=== PATIENT | female | born 1945 | race Caucasian/White ===

== ENCOUNTER 2023-08-29 08:23 | Day surgery (SDC) | payer MEDICARE, OTHER ==
[2023-08-29] MEDS ORDERED: Depo-Medrol 40 MG/ML IM ONE (08:24)
[2023-08-29] MEDS ORDERED: LIDOCAINE HCL 2% 100 MG/5 ML IJ ONE (08:24)
[2023-08-29] MEDS ORDERED: DIPRIVAN 200 MG/20 ML IV ONE (10:49)
[2023-08-29] MEDS ORDERED: Lactated Ringers 1,000 ML IV ONE (11:12)
--- NOTE | 2023-08-29 12:06 | XRAY ---
9 seconds of fluoroscopy was used in surgery for a bilateral L4-S1 MBB.
--- NOTE | 2023-08-30 16:32 | XRAY ---
9 seconds of fluoroscopy was used in surgery for a bilateral L4-S1 MBB.
== END 2023-08-29 11:22 | disposition home or self-care (01) ==
LOC: SDC-PAIN 08:23
PROVIDERS: ATTEND Psychiatry & Neurology Pain Medicine
DX: M47.816 Spondylosis without myelopathy or radiculopathy, lumbar region (principal); E11.9 Type 2 diabetes mellitus without complications
CPT/HCPCS: 64493; 64494; 72020; 77002; 82947; J1030; J2704

== ENCOUNTER 2023-10-17 06:30 | Day surgery (SDC) | payer MEDICARE, OTHER ==
[2023-10-17] MEDS ORDERED: Depo-Medrol 40 MG/ML IM ONE (06:31)
[2023-10-17] MEDS ORDERED: BUPIVACAINE 0.5% VIAL IJ ONE (06:31)
[2023-10-17] MEDS ORDERED: DIPRIVAN 200 MG/20 ML IV ONE (08:24)
[2023-10-17] MEDS ORDERED: Lactated Ringers 1,000 ML IV ONE (09:49)
--- NOTE | 2023-10-17 12:29 | XRAY ---
Indication: Bilateral L4-S1 MBB. Intraoperative fluoroscopy provided for 11 seconds. Single digital spot image submitted for interpretation demonstrates posterior needle tips projecting over the expected left and right L4-S1 nerve roots. Correlate with interoperative findings/report.
--- NOTE | 2023-10-17 12:37 | XRAY ---
11 seconds of fluoroscopy was used in surgery for a bilateral L4-S1 MBB.
== END 2023-10-17 08:55 | disposition home or self-care (01) ==
LOC: SDC-PAIN 06:30
PROVIDERS: ATTEND Psychiatry & Neurology Pain Medicine
DX: M47.816 Spondylosis without myelopathy or radiculopathy, lumbar region (principal); E11.9 Type 2 diabetes mellitus without complications
CPT/HCPCS: 64493; 64494; 72020; 77002; 82947; J1010; J2704

== ENCOUNTER 2023-11-21 09:58 | Day surgery (SDC) | payer MEDICARE, OTHER ==
[2023-11-21] MEDS ORDERED: BUPIVACAINE 0.5% VIAL IJ ONE (09:59)
[2023-11-21] MEDS ORDERED: Depo-Medrol 40 MG/ML IM ONE (09:59)
[2023-11-21] MEDS ORDERED: XYLOCAINE-MPF 1% 5ML SDV IJ ONE (09:59)
[2023-11-21] MEDS ORDERED: DIPRIVAN 200 MG/20 ML IV ONE ×2 (11:49→12:46)
[2023-11-21] MEDS ORDERED: TRANDATE 20 MG/4 ML SYRINGE IV ONE (12:07)
[2023-11-21] MEDS ORDERED: APRESOLINE 20 MG/ML INJ ONE ×2 (12:14)
[2023-11-21] MEDS ORDERED: Lactated Ringers 1,000 ML IV ONE (12:16)
--- NOTE | 2023-11-21 14:51 | XRAY ---
Indication: Right L4-S1 RFA. Intraoperative fluoroscopy provided for 14 seconds. 3 digital spot image submitted for interpretation demonstrates posterior needle tips projecting over the expected right L4-S1 nerve roots. Correlate with intraoperative findings/report.
--- NOTE | 2023-11-21 15:19 | XRAY ---
14 seconds of fluoroscopy was used in surgery for a right L4-S1 RFA.
== END 2023-11-21 13:17 | disposition home or self-care (01) ==
LOC: SDC-PAIN 09:58
PROVIDERS: ATTEND Psychiatry & Neurology Pain Medicine
DX: M47.816 Spondylosis without myelopathy or radiculopathy, lumbar region (principal); E11.9 Type 2 diabetes mellitus without complications
CPT/HCPCS: 64635; 64636; 72100; 77002; 82947; 99100; J0360; J1010; J2704

== ENCOUNTER 2023-12-05 06:40 | Day surgery (SDC) | payer MEDICARE, OTHER ==
[2023-12-05] MEDS ORDERED: DIPRIVAN 200 MG/20 ML IV ONE (08:03)
[2023-12-05] MEDS ORDERED: Lactated Ringers 1,000 ML IV ONE (09:25)
--- NOTE | 2023-12-05 11:12 | XRAY ---
Indication: Left L4-S1 RFA. Intraoperative fluoroscopy provided for 21 seconds. 3 digital spot image submitted for interpretation demonstrates posterior needle tips projecting over the expected left L4-S1 nerve roots. Correlate with intraoperative findings/report.
--- NOTE | 2023-12-05 12:25 | XRAY ---
21 seconds of fluoroscopy was used in surgery for a left L4-S1 RFA.
== END 2023-12-05 08:40 | disposition home or self-care (01) ==
LOC: SDC-PAIN 06:40
PROVIDERS: ATTEND Psychiatry & Neurology Pain Medicine
DX: M47.816 Spondylosis without myelopathy or radiculopathy, lumbar region (principal); E11.9 Type 2 diabetes mellitus without complications
CPT/HCPCS: 64635; 64636; 72100; 77002; 82947; 99100; J2704